=== PATIENT | female | born 1965 | race Caucasian/White ===

== ENCOUNTER 2018-01-19 05:56 | Day surgery (SDC) | payer OTHER ==
[~2018-01-19 05:56] MED LIST: TYLENOL32 MG/ML
== END 2018-01-19 12:40 | disposition home or self-care (01) ==
LOC: CIR.AMB 05:56
DX: C50.811 Malignant neoplasm of overlapping sites of right female breast (principal)
CPT/HCPCS: 36561; C1751

== ENCOUNTER 2018-07-19 11:42 | Inpatient (IN) | payer OTHER ==
[~2018-07-19] VITALS: Ht 165.1 cm; Wt 59.4 kg
== END 2018-07-25 13:49 | disposition home or self-care (01) | DRG 581 ==
LOC: O/R 07-23 05:44 → SURH 07-23 10:30
PROVIDERS: Surgery
PROC: 0HTV0ZZ Resection of Bilateral Breast, Open Approach (ICD-10-PCS; 2018-07-23)
PROC: 07B60ZX Excision of Left Axillary Lymphatic, Open Approach, Diagnostic (ICD-10-PCS; principal; 2018-07-23 10:30)
DX: C50.411 Malignant neoplasm of upper-outer quadrant of right female breast (principal); C50.412 Malignant neoplasm of upper-outer quadrant of left female breast

== ENCOUNTER 2018-08-10 14:35 | Outpatient (CLI) | payer OTHER | END 2018-08-10 14:49 | disposition home or self-care (01) | LOC: SONOGRAMA 14:35 | DX: N61.1 Abscess of the breast and nipple (principal); C50.412 Malignant neoplasm of upper-outer quadrant of left female breast ==

== ENCOUNTER 2018-08-24 13:30 | Outpatient (CLI) | payer OTHER | END 2018-08-24 13:36 | disposition home or self-care (01) | LOC: SONOGRAMA 13:30 | DX: C50.412 Malignant neoplasm of upper-outer quadrant of left female breast (principal); N61.1 Abscess of the breast and nipple ==

== ENCOUNTER 2021-03-01 08:05 | Outpatient (CLI) | payer OTHER | END 2021-03-01 08:10 | disposition home or self-care (01) | LOC: RAD 08:05 | PROVIDERS: ATTEND Colon & Rectal Surgery | DX: K59.00 Constipation, unspecified (principal); N39.0 Urinary tract infection, site not specified; K62.5 Hemorrhage of anus and rectum; D59.8 Other acquired hemolytic anemias; Z11.59 Encounter for screening for other viral diseases; Z20.828 Contact with and (suspected) exposure to other viral communicable diseases; D68.9 Coagulation defect, unspecified ==

== ENCOUNTER → 2022-05-31 | Emergency (ER) | payer OTHER ==
[~2022-05-31] VITALS: Ht 162.6 cm; Wt 61.2 kg
[~2022-05-31] MED LIST changes: +TRAMADOL HCL E200 M1 PO
== END | disposition home or self-care (01) ==
LOC: ER 10:17
DX: M54.9 Dorsalgia, unspecified (principal)